=== PATIENT | male | born 1975 | race Asian ===

== ENCOUNTER 2021-07-09 22:24 | Emergency (ER) | payer OTHER ==
[~2021-07-09] VITALS: Ht 172.7 cm; Wt 72.6 kg
--- NOTE | 2021-07-09 22:35 | NUR ---
PATIENT WALKED INTO ER C/O GENARALIZED ITCHY RASH WITH LIP SWELLING AND SOB THAT STARTE YESTERDAY. PATIENT STATES "I DON'T KNOW WHAT CAUSE IT." PATIENT SPEAKING IN FULL SENTANCE WITH NO SOB. PLACED IN ROOM 5A.
[2021-07-09] MEDS ORDERED: methylPREDNISolone SOD SUCC 125 MG/2 ML VIAL IV ONE (23:15)
[2021-07-09] MEDS ORDERED: hydrOXYzine HCL 25 MG TABLET PO ONE (23:15)
[2021-07-09] MEDS ORDERED: PRED20TA PO (23:22)
[2021-07-09] MEDS ORDERED: HYDR-500 PO (23:22)
[2021-07-09] MEDS ORDERED: methylPREDNISolone SOD SUCC 125 MG/2 ML VIAL ONE (23:27)
[2021-07-09] MEDS ORDERED: hydrOXYzine HCL 25 MG TABLET ONE (23:27)
--- NOTE | 2021-07-09 23:29 | NUR ---
DR MILLER INTO RE EVAL PATIENT.
--- NOTE | 2021-07-09 23:35 | NUR ---
IV removed. Catheter intact and site benign. Pressure and 4x4 gauze applied to site. No bleeding noted.
[2021-07-09 23:42] VITALS: BP 150/84
--- NOTE | 2021-07-09 23:43 | NUR ---
Patient discharged to home in stable condition WITH BOYFRIEND TAKING PATIENT HOME. Written and verbal after care instructions given. Patient verbalizes understanding of instructions. Stressed follow up or return to ER for worsening s/s.
== END 2021-07-09 23:43 | disposition home or self-care (01) ==
LOC: ER 22:31
DX: L50.9 Urticaria, unspecified (principal); I10 Essential (primary) hypertension; Z88.8 Allergy status to other drugs, medicaments and biological substances; Z79.899 Other long term (current) drug therapy
CPT/HCPCS: 96374; 99283; J2930; A4663

== ENCOUNTER 2021-07-11 19:31 | Emergency (ER) | payer OTHER ==
[~2021-07-11] VITALS: Ht 167.6 cm; Wt 72.6 kg
[~2021-07-11 19:31] MED LIST: HYDR-500 PO; PRED20TA PO
--- NOTE | 2021-07-11 20:17 | NUR ---
PATIENT WALKED INTO ER C/O GENERALIZED RASH AND SOB THAT STARTED YESTERDAY AFTER EATING [employer].
[2021-07-11] MEDS ORDERED: methylPREDNISolone SOD SUCC 40 MG/ML VIAL IV ONE (20:30)
[2021-07-11] MEDS ORDERED: methylPREDNISolone SOD SUCC 40 MG/ML VIAL ONE (20:54)
[2021-07-11] MEDS ORDERED: CYPR4TAB44 PO (20:59)
[2021-07-11] MEDS ORDERED: PRED20TA PO (21:04)
[2021-07-11] MEDS ORDERED: EPIN0.3P3 IM (21:41)
--- NOTE | 2021-07-11 21:42 | NUR ---
Patient discharged to home in stable condition. Written and verbal after care instructions given. Patient verbalizes understanding of instructions. Stressed follow up or return to ER for worsening s/s. Patient ambulated from the ER with steady gait. All belongings with patient.
[2021-07-11 21:59] VITALS: BP 132/80
== END 2021-07-11 21:42 | disposition home or self-care (01) ==
LOC: ER 19:41
DX: L50.9 Urticaria, unspecified (principal); I10 Essential (primary) hypertension; Z88.8 Allergy status to other drugs, medicaments and biological substances; Z79.899 Other long term (current) drug therapy
CPT/HCPCS: 96372; 99283; J2920; A4663